=== PATIENT | female | born 1965 | race Caucasian/White ===

== ENCOUNTER 2020-08-18 13:58 | Observation (INO) | payer OTHER, SELFPAY ==
[2020-08-18] VITALS (8 sets, daily range): BP systolic 91–107; BP diastolic 52–62; PULSE 60–94; RESP 16–28; TEMP 36.4–37.2; O2SAT 91–97; BMI 30.5
--- NOTE | 2020-08-18 14:30 | DI.RAD.S_ITS ---
PROCEDURE: XR CHEST 1V INDICATIONS: flu-like symptoms TECHNIQUE: One view of the chest was acquired. COMPARISON: None. FINDINGS: Surgical changes and devices: None. Lungs and pleura: No pleural effusions or pneumothorax. Focal opacity in the left mid lung. Low lung volumes. Mediastinum: Mediastinal contours appear normal. Heart size is normal. Bones and chest wall: No suspicious bony lesions. Overlying soft tissues appear unremarkable. IMPRESSION: Focal left midlung opacity suggestive of bronchopneumonia. Recommend follow-up to document resolution after treatment and exclude underlying pulmonary nodule. Dictated by: Bradley Tinoco M.D. on 08/18/2020 at 15:40 Approved by: Bradley Tinoco M.D. on 08/18/2020 at 15:41
[2020-08-18 14:45] LABS: Lactate Dehydrogenase 634 U/L (313-618)
[2020-08-18 14:47] LABS: Add Manual Diff / Slide Review NO; Basophils Absolute Auto 0 /uL (0-100); Basophils Percent Auto 0.6 % (0-2); D Dimer < 200 ng/mL (<230); Eosinophils Absolute Auto 0 /uL (0-450); Eosinophils Percent Auto 0.3 % (2-4); Hematocrit 41.1 % (36-46); Hemoglobin 13.7 g/dL (12.0-16.0); Lactate (Lactic Acid) 0.6 mmol/L (0.7-2.1); Lymphocytes Absolute Auto 1200 /uL (1100-4500); Mean Corpuscular HGB Conc 33.4 % (30-36); Mean Corpuscular Hemoglobin 28.4 PG (26-34); Mean Corpuscular Volume 85.1 fL (80-100); Monocytes Absolute Auto 200 /uL (0-900); Monocytes Percent Auto 6.2 % (3-14); Neutrophils Absolute Auto 2400 /uL (1500-7000); Neutrophils Percent Auto 61.9 % (50-75); Platelet Count 114 X10^3/uL (150-400); Red Blood Cell Count 4.83 X10^6/uL (4.0-5.2); Red Cell Distribution Width 13.3 % (11.6-14.8); White Blood Cell Count 3.9 X10^3/uL (4.5-11.0)
[2020-08-18 14:49] LABS: Alanine Aminotransferase 25 IU/L (<35); Albumin 3.7 g/dL (3.5-5.0); Albumin Globulin Ratio 1.3 (1.0-2.8); Alkaline Phosphatase 61 U/L (38-126); Aspartate Aminotransferase 36 IU/L (14-36); BUN Creatinine Ratio 14.8 (6-22); Bilirubin Total 0.3 mg/dL (0.2-1.3); Blood Urea Nitrogen 13 mg/dL (7-17); C-Reactive Protein Quant 4.6 mg/dL (<1.0); Calcium 9.9 mg/dL (8.4-10.2); Carbon Dioxide 28 mmol/L (22-32); Chloride 105 mmol/L (98-107); Creatine Kinase 33 U/L (30-135); Estimated Glomerular Filt Rate > 60.0 mL/min (>60); Globulin 2.9 g/dL (1.7-4.1); Glucose 129 mg/dL (70-100); HEMOLYSIS 19 (0-50); Potassium 3.4 mmol/L (3.4-5.1); Sodium 137 mmol/L (137-145); Total Protein 6.6 g/dL (6.3-8.2)
--- NOTE | 2020-08-18 14:51 | ED_ITS ---
HPI - General Adult General Chief complaint: Shortness of Breath/Dyspnea Stated complaint: covid pos and she is not getting better Time Seen by Provider: 08/18/20 14:39 Source: patient Mode of arrival: Ambulatory Limitations: no limitations History of Present Illness HPI narrative: Patient stated approximately 1 week ago she started to develop symptoms of fever and coughing. She was tested at an outside facility shortly after and at the end of last week received a positive COVID results. She states that since the end of last week she has been has becoming more short of breath and dyspnea on exertion. Also having fevers and headache and generally not feeling very well. No rashes. Has been taking Tylenol at home. Related Data Home Medications Medication Instructions Recorded Confirmed No Known Home Medications 08/18/20 08/18/20 Allergies Allergy/AdvReac Type Severity Reaction Status Date / Time esther Allergy Unknown Verified 08/18/20 14:29 Review of Systems Constitutional Constitutional: Reports chills, Reports fatigue and Reports fever(s) Eyes Eyes: Denies change in vision ENT Ears, Nose, Mouth, and Throat: Denies sore throat Cardiovascular Cardiovascular: Denies chest pain, Reports dyspnea and Reports dyspnea on exertion Respiratory Respiratory: Reports cough, Reports dyspnea and Reports dyspnea on exertion Gastrointestinal Gastrointestinal: Denies abdominal pain, Reports nausea and Denies vomiting Genitourinary Genitourinary: Denies dysuria Genitourinary: Denies dysuria Musculoskeletal Musculoskeletal: Denies arthralgias and Denies myalgias Integumentary/Breasts Skin/Breast: Denies lesions and Denies rash Neurologic Neurologic: Denies behavioral changes Psychiatric Psychiatric: Denies behavioral changes Endocrine Endocrine: Reports fatigue Hematologic/Lymphatic On Anticoagulants: No Allergic/Immunologic Allergic/Immunologic: Denies urticaria Patient History Medical History Healthy adult Surgical History (Updated 08/18/20 @ 17:04 by Lily Perez MD) History of weight loss surgery Family History (Updated 08/18/20 @ 17:05 by Lily Perez MD) Mother Hypertension Diabetes mellitus Congestive heart failure Kidney disease Social History lives independently: Yes Exam Initial Vital Signs Initial Vital Signs: Vital Signs Temperature 98.9 F 08/18/20 14:04 Pulse Rate 94 H 08/18/20 14:04 Respiratory Rate 20 08/18/20 14:04 Blood Pressure 102/55 L 08/18/20 14:04 Pulse Oximetry 91 08/18/20 14:04 Const General: cooperative, comfortable and well developed Limitations: mental status not altered HENMS Head: normal to inspection and normocephalic Resp Effort & Inspection: labored and tachypneic Auscultation: rhonchi Cardio Rate: regular rate Rhythm: regular rhythm GI Inspection: non-distended Palpation: soft Skin Lesions: no lesions Rashes: no rashes Neuro General: patient alert and patient awake Cognition: normal cognition Speech: speech normal Extrem General: normal to inspection, capillary refill normal and No edema Psych Appearance: grossly normal and well kempt Course Orders Ordered: ED Orders 08/18/20 14:26 C-Reactive Protein Quant Stat Complete Blood Count AUTO DIFF Stat Comprehensive Metabolic Panel Stat D Dimer Stat Ferritin Stat Lactate (Lactic Acid) Stat Lactate Dehydrogenase Stat NT-proBNP (BNP-Adult 18+) Stat Procalcitonin Stat Troponin & CK Cardiac Panel Stat 08/18/20 14:30 XR chest 1V Stat 08/18/20 15:10 COVID19 - ADMIT (PHARMACY CARE COORDINATOR swab/PCR) Stat 08/18/20 15:58 Blood Culture Stat Acetaminophen (Acetaminophen 325 Mg Tablet) 650 mg PO Q6HR PRN PRN Reason: Fever/Mild Pain (1-3) Bisacodyl (Bisacodyl 10 Mg Supp) 10 mg OR DAILY PRN PRN Reason: Constipation Dexamethasone (Dexamethasone 10 Mg/Ml Vial) 6 mg IV DAILY [facility] Docusate Sodium (Docusate 100 Mg Capsule) 100 mg PO BID [facility] Enoxaparin Sodium (Enoxaparin 40 Mg/0.4 Ml Syringe) 40 mg SUBCUT DAILY [facility] Remdesivir 100 mg/ Sodium (Chloride) 250 mls @ 250 mls/hr IV 1500 [facility] Ibuprofen (Ibuprofen 600 Mg Tablet) 600 mg PO Q6HR PRN PRN Reason: Fever/Mild Pain (1-3) Naloxone HCl (Naloxone 0.4 Mg/Ml Vial) 0.2 mg IV Q2MIN PRN PRN Reason: Opiate Reversal Ondansetron HCl (Ondansetron 4 Mg/2 Ml Inj) 4 mg IV Q8HR PRN PRN Reason: Nausea And Vomiting Discontinued Medications Dexamethasone (Dexamethasone 10 Mg/Ml Vial) 10 mg IV NOW ONE Stop: 08/18/20 15:05 Last Admin: 08/18/20 15:12 Dose: 10 mg Documented by: JESUS Remdesivir 200 mg/ Sodium (Chloride) 250 mls @ 250 mls/hr IV NOW ONE Stop: 08/18/20 15:05 Last Infusion: 08/18/20 16:12 Dose: 0 mls/hr Documented by: Admin: 08/18/20 15:30 Dose: 250 mls/hr Documented by: JESUS Vital Signs Vital signs: Vital Signs - 8 hr 08/18/20 14:04 08/18/20 14:33 08/18/20 14:38 Temperature 98.9 F Pulse Rate 94 H 78 70 Respiratory Rate 20 28 H Blood Pressure 102/55 L 107/53 L 91/52 L Pulse Oximetry 91 94 96 08/18/20 15:00 Temperature Pulse Rate 67 Respiratory Rate Blood Pressure 97/56 L Pulse Oximetry 97 Medical Decision Making Lab Data Lab results reviewed: Yes I reviewed the patient's lab results. Result diagrams: 08/18/20 14:26 08/18/20 14:26 Labs: Lab Results 08/18/20 08/18/20 08/18/20 Range/Units 14:26 14:26 14:26 WBC 3.9 L (4.5-11.0) X10^3/uL RBC 4.83 (4.0-5.2) X10^6/uL Hgb 13.7 (12.0-16.0) g/dL Hct 41.1 (36-46) % MCV 85.1 (80-100) fL MCH 28.4 (26-34) PG MCHC 33.4 (30-36) % RDW 13.3 (11.6-14.8) % Plt Count 114 L (150-400) X10^3/uL Neut % (Auto) 61.9 (50-75) % Lymph % (Auto) 31.0 (25-40) % [place] % (Auto) 6.2 (3-14) % Eos % (Auto) 0.3 L (2-4) % Baso % (Auto) 0.6 (0-2) % Neut # (Auto) 2400 (1647-0302) /uL Lymph # (Auto) 1200 (4540-7449) /uL [place] # (Auto) 200 (0-900) /uL Eos # (Auto) 0 (0-450) /uL Baso # (Auto) 0 (0-100) /uL D-Dimer < 200 (<230) ng/mL Sodium 137 (137-145) mmol/L Potassium 3.4 (3.4-5.1) mmol/L Chloride 105 (98-107) mmol/L Carbon Dioxide 28 (22-32) mmol/L BUN 13 (7-17) mg/dL Creatinine 0.88 (0.52-1.04) mg/dL Estimated GFR > 60.0 (>60) mL/min BUN/Creatinine Ratio 14.8 (6-22) Glucose 129 H (70-100) mg/dL Lactate (0.7-2.1) mmol/L Calcium 9.9 (8.4-10.2) mg/dL Ferritin 94 (11-264) ng/mL Total Bilirubin 0.3 (0.2-1.3) mg/dL AST 36 (14-36) IU/L ALT 25 (<35) IU/L Alkaline Phosphatase 61 (38-126) U/L Lactate Dehydrogenase (313-618) U/L Total Creatine Kinase 33 (30-135) U/L CK-MB (CK-2) TNP CK-MB (CK-2) Rel Index TNP Troponin I < 0.012 (0.01-0.034) ng/mL C-Reactive Protein 4.6 H (<1.0) mg/dL NT-Pro-B Natriuret Pep (<125) pg/mL Total Protein 6.6 (6.3-8.2) g/dL Albumin 3.7 (3.5-5.0) g/dL Globulin 2.9 (1.7-4.1) g/dL Albumin/Globulin Ratio 1.3 (1.0-2.8) Procalcitonin 0.06 (<0.5) ng/mL SARS-CoV-2 (PCR) (Negative) 08/18/20 08/18/20 08/18/20 Range/Units 14:26 14:26 15:10 WBC (4.5-11.0) X10^3/uL RBC (4.0-5.2) X10^6/uL Hgb (12.0-16.0) g/dL Hct (36-46) % MCV (80-100) fL MCH (26-34) PG MCHC (30-36) % RDW (11.6-14.8) % Plt Count (150-400) X10^3/uL Neut % (Auto) (50-75) % Lymph % (Auto) (25-40) % [place] % (Auto) (3-14) % Eos % (Auto) (2-4) % Baso % (Auto) (0-2) % Neut # (Auto) (5148-4186) /uL Lymph # (Auto) (6872-8600) /uL [place] # (Auto) (0-900) /uL Eos # (Auto) (0-450) /uL Baso # (Auto) (0-100) /uL D-Dimer (<230) ng/mL Sodium (137-145) mmol/L Potassium (3.4-5.1) mmol/L Chloride (98-107) mmol/L Carbon Dioxide (22-32) mmol/L BUN (7-17) mg/dL Creatinine (0.52-1.04) mg/dL Estimated GFR (>60) mL/min BUN/Creatinine Ratio (6-22) Glucose (70-100) mg/dL Lactate 0.6 L (0.7-2.1) mmol/L Calcium (8.4-10.2) mg/dL Ferritin (11-264) ng/mL Total Bilirubin (0.2-1.3) mg/dL AST (14-36) IU/L ALT (<35) IU/L Alkaline Phosphatase (38-126) U/L Lactate Dehydrogenase 634 H (313-618) U/L Total Creatine Kinase (30-135) U/L CK-MB (CK-2) CK-MB (CK-2) Rel Index Troponin I (0.01-0.034) ng/mL C-Reactive Protein (<1.0) mg/dL NT-Pro-B Natriuret Pep 26 (<125) pg/mL Total Protein (6.3-8.2) g/dL Albumin (3.5-5.0) g/dL Globulin (1.7-4.1) g/dL Albumin/Globulin Ratio (1.0-2.8) Procalcitonin (<0.5) ng/mL SARS-CoV-2 (PCR) Positive H (Negative) Imaging Data Chest x-ray: Radiologist's Impression: [address] [id number] Scan ReportSigned Patient: Jose Alejandro Polanco RMR#: [id number]: 11/09/1960cct:[id number]/Sex: 59 / MDate of Service: 08/18/20Loc: EDAccession Number: [id number] Procedure: CT head/brain wo con Ordering Provider: Enrique Benedict D.O. PROCEDURE: CT HEAD/BRAIN WO CON INDICATIONS: suden onset of memory loss, no trauma TECHNIQUE: Noncontrast 4.5 mm thick angled axial sections acquired from the foramen magnum to the vertex, with coronal and sagittal reformats. For radiation dose reduction, the following was used: automated exposure control, adjustment of mA and/or kV according to patient size. COMPARISON: None. FINDINGS: Image quality: Excellent. CSF spaces: Basal cisterns are patent. No extra-axial fluid collections. Ventricles are normal in size and shape. Brain: No midline shift. No intracranial masses or hemorrhage. Jarrett-white matter interface is normal. Skull and face: Calvarium and visualized facial bones are intact, without suspicious lesions. Sinuses: Visualized sinuses and mastoids are clear. IMPRESSION: No acute intracranial process. Dictated by: Bradley Tinoco M.D. on 08/18/2020 at 12:59 Approved by: Bradley Tinoco M.D. on 08/18/2020 at 13:01 ECG Data Attestation: I personally reviewed and interpreted this ECG as follows: Prior ECG tracings: not available for review Interpretation: Sinus rhythm Ventricular rate is 76 Normal QRS Normal QTC Nonspecific ST T wave changes MDM Narrative Medical decision making narrative: Known COVID positive with chest x-ray and ph ysical exam consistent with this. Patient with oxygen saturations high 80s/low 90s upon arrival. She feels much better with the oxygen by nasal cannula. Patient does need admitted to the hospital given her hypoxia/respiratory status. Discussed case with Dr. perez who will admit for further evaluation and treatment. Discussed the admission with the patient. She expressed understanding and agreement. Discharge Plan Departure Patient Disposition: Admitted As Inpatient Clinical Impression: COVID-19, Hypoxia Admit Date/Time: 08/18/20 15:35 Admit Provider: Lily Perez
[2020-08-18 14:55] LABS: NT-proBNP (BNP-Adult 18+) 26 pg/mL (<125)
[2020-08-18 14:59] LABS: Troponin I < 0.012 ng/mL (0.01-0.034)
[2020-08-18 15:04] LABS: Procalcitonin 0.06 ng/mL (<0.5)
[2020-08-18] MEDS: DEXAMETHASONE 10 MG/ML VIAL IV (15:12)
[2020-08-18 15:22] LABS: Ferritin 94 ng/mL (11-264)
[2020-08-18] MEDS: REMDESIVIR 200 MG in SODIUM CHLORIDE 0.9% 210 ML 250 ML IV (15:30)
[2020-08-18 16:42] LABS: COVID19 - ADMIT (NP swab/PCR) POSITIVE (Negative)
--- NOTE | 2020-08-18 17:01 | P.HP_ITS ---
History of Present Illness History of Present Illness Date Patient Seen: 08/18/20 Chief complaint: covid pos and she is not getting better Narrative: The patient is a 55-year-old female with no past medical history who was well until about 8 days ago when she and her both contracted COVID- 19 infection. Her has been recovering quite well. The patient however has had progressive shortness of breath, continued fever to 102, headache, decreased appetite, nausea, sore throat, and cough. As her symptoms have progressed she presented to the emergency department for evaluation. In the emergency department patient was found to be hypoxic and placed on 3 L of oxygen with improvement in her oxygen saturation in 93%. Chest x-ray confirmed interstitial infiltrates consistent with SARs COVID 2 infection. The patient was given 1 dose of Decadron and initiated on remdesivir. Patient is admitted to the hospital at this time for acute hypoxic respiratory failure secondary to COVID pneumonia. Patient History Surgical History (Updated 08/18/20 @ 17:04 by Lily Perez MD) History of weight loss surgery Family & Social History Family History (Updated 08/18/20 @ 17:05 by Lily Perez MD) Mother Hypertension Diabetes mellitus Congestive heart failure Kidney disease Meds Home Medications and Allergies Home Medications Medication Instructions Recorded Confirmed Type No Known Home Medications 08/18/20 08/18/20 History Allergies Allergy/AdvReac Type Severity Reaction Status Date / Time kiwi Allergy Unknown Verified 08/18/20 14:29 Review of Systems Review of Systems ROS: Yes All systems reviewed with the patient and are negative except as otherwise documented Exam Vital Signs (past 8 hours): - 08/18/20 14:04 08/18/20 14:33 08/18/20 14:38 Temperature 98.9 F Pulse Rate 94 H 78 70 Respiratory Rate 20 28 H Blood Pressure 102/55 L 107/53 L 91/52 L Pulse Oximetry 91 94 96 08/18/20 15:00 Temperature Pulse Rate 67 Respiratory Rate Blood Pressure 97/56 L Pulse Oximetry 97 Oxygen Delivery Method Nasal Cannula Oxygen Flow Rate 3 Narrative Exam Narrative: Pleasant female lying in bed HEENT: Normocephalic atraumatic, extraocular muscles are intact, oropharynx is clear, neck is supple without adenopathy Lungs: Decreased breath sounds with diffuse rhonchi and crackles bilaterally Cardiac exam: Regular rate and rhythm normal S1-S2 Abdomen: Soft nontender nondistended without hepatosplenomegaly Extremities: No edema Neuro exam: Patient is awake alert and appropriate, answers questions appropriately, cranial nerves are intact, sensations grossly intact, strength is symmetric and equal, gait is not assessed Skin exam: No lesions observed Psychiatric exam: Patient is alert and appropriate, there is no hallucinations, no delusions Objective Labs Result Diagrams: 08/18/20 14:26 08/18/20 14:26 Labs: Laboratory Results - last 24 hr 08/18/20 08/18/20 08/18/20 14:26 14:26 14:26 WBC 3.9 L RBC 4.83 Hgb 13.7 Hct 41.1 MCV 85.1 MCH 28.4 MCHC 33.4 RDW 13.3 Plt Count 114 L Neut % (Auto) 61.9 Lymph % (Auto) 31.0 [place] % (Auto) 6.2 Eos % (Auto) 0.3 L Baso % (Auto) 0.6 Neut # (Auto) 2400 Lymph # (Auto) 1200 [place] # (Auto) 200 Eos # (Auto) 0 Baso # (Auto) 0 D-Dimer < 200 Sodium 137 Potassium 3.4 Chloride 105 Carbon Dioxide 28 BUN 13 Creatinine 0.88 Estimated GFR > 60.0 BUN/Creatinine Ratio 14.8 Glucose 129 H Lactate Calcium 9.9 Ferritin 94 Total Bilirubin 0.3 AST 36 ALT 25 Alkaline Phosphatase 61 Lactate Dehydrogenase Total Creatine Kinase 33 CK-MB (CK-2) TNP CK-MB (CK-2) Rel Index TNP Troponin I < 0.012 C-Reactive Protein 4.6 H NT-Pro-B Natriuret Pep Total Protein 6.6 Albumin 3.7 Globulin 2.9 Albumin/Globulin Ratio 1.3 Procalcitonin 0.06 SARS-CoV-2 (PCR) 08/18/20 08/18/20 08/18/20 14:26 14:26 15:10 WBC RBC Hgb Hct MCV MCH MCHC RDW Plt Count Neut % (Auto) Lymph % (Auto) [place] % (Auto) Eos % (Auto) Baso % (Auto) Neut # (Auto) Lymph # (Auto) [place] # (Auto) Eos # (Auto) Baso # (Auto) D-Dimer Sodium Potassium Chloride Carbon Dioxide BUN Creatinine Estimated GFR BUN/Creatinine Ratio Glucose Lactate 0.6 L Calcium Ferritin Total Bilirubin AST ALT Alkaline Phosphatase Lactate Dehydrogenase 634 H Total Creatine Kinase CK-MB (CK-2) CK-MB (CK-2) Rel Index Troponin I C-Reactive Protein NT-Pro-B Natriuret Pep 26 Total Protein Albumin Globulin Albumin/Globulin Ratio Procalcitonin SARS-CoV-2 (PCR) Positive H Assessment & Plan Assessment & Plan narrative: Impression 1. 55-year-old female admitted to the hospital with acute hypoxic respiratory failure secondary to COVID 19 pneumonia -patient was diagnosed with COVID a days ago -she presented to the emergency room with increasing shortness of breath, hypoxia with a room air sat of 91% and a chest x-ray consistent with interstitial infiltrate -patient is symptomatic with nausea, anorexia, cough, headache, and fever -her has COVID but has improved, other family members have been quarantine -patient received Decadron 6 mg in the emergency room and an initial dose of remdesivir -patient will continue on a 5 day treatment of Decadron and Remdesevir until she has long no longer hypoxic -patient will be placed on DVT prophylaxis -patient indicates she is full code, her is her surrogate decision maker Patient will be admitted as an inpatient as it is expected that she will be in the hospital greater than 48 hours
[2020-08-19] VITALS: BP 117/56; PULSE 77; RESP 18; TEMP 36.5; O2SAT 94
[2020-08-19 05:50] VITALS: BP 127/78; PULSE 77; RESP 18; TEMP 36.2; O2SAT 96
[2020-08-19 06:11] LABS: Basophils Absolute Auto 0 /uL (0-100); Basophils Percent Auto 0.2 % (0-2); Eosinophils Absolute Auto 0 /uL (0-450); Hematocrit 39.8 % (36-46); Hemoglobin 13.3 g/dL (12.0-16.0); Lymphocytes Absolute Auto 1200 /uL (1100-4500); Lymphocytes Percent Auto 37.8 % (25-40); Mean Corpuscular HGB Conc 33.4 % (30-36); Mean Corpuscular Hemoglobin 28.5 PG (26-34); Mean Corpuscular Volume 85.4 fL (80-100); Monocytes Absolute Auto 300 /uL (0-900); Monocytes Percent Auto 9.1 % (3-14); Neutrophils Absolute Auto 1600 /uL (1500-7000); Neutrophils Percent Auto 52.9 % (50-75); Platelet Count 108 X10^3/uL (150-400); Red Blood Cell Count 4.66 X10^6/uL (4.0-5.2); White Blood Cell Count 3.1 X10^3/uL (4.5-11.0)
[2020-08-19 06:12] LABS: Add Manual Diff / Slide Review SLIDE REVIEW
[2020-08-19 06:23] LABS: BUN Creatinine Ratio 16.2 (6-22); Blood Urea Nitrogen 12 mg/dL (7-17); Carbon Dioxide 31 mmol/L (22-32); Chloride 104 mmol/L (98-107); Estimated Glomerular Filt Rate > 60.0 mL/min (>60); Glucose 112 mg/dL (70-100); HEMOLYSIS 15 (0-50); Potassium 4.4 mmol/L (3.4-5.1); Sodium 139 mmol/L (137-145)
[2020-08-19 07:10] LABS: RBC Morphology Normal Morphology
[2020-08-19 09:34] VITALS: BP 103/65; PULSE 60; RESP 17; TEMP 37.1; O2SAT 93
[2020-08-19] MEDS: DEXAMETHASONE 10 MG/ML VIAL 6 MG IV (09:34)
--- NOTE | 2020-08-19 12:18 | CM.DANOTE ---
DCP: Case received, EMR reviewed. Called patient's room to obtain information. Introduced self and role over the phone, as patient is positive for COVID and in isolation. Was able to get information from patient regarding insurance, primary care provider, as well as her baseline status prior to hospitalization. DCP assessment completed with information currently available. Patient is a 55 year old female who admitted yesterday afternoon to the care of the hospitalist team. PCP: Dr. Barreto, [facility]. Payer: No current insurance. Patient came to the hospital via private vehicle secondary to increased shortness of breath. She was recently diagnosed with COVID 19 a few days ago, as well as her . She was admitted for hypoxia, respiratory failure, and placed on oxygen. Sent a note to admission change group, as was noted that patient has no insurance. Spoke to patient over the phone. She is independent at her baseline, and resides in [place]. She resides with her , Niko. Patient did confirm that she does go to [facility], and has seen Sabina Barreto. She indicated that she can follow up with her. Patient confirmed that she has no insurance, secondary to decreasing her hours at work, so not eligable. She is applying for insurance. She is also attempting to get on to her 's insurance plan. Admissions counselors have already reached out to her. Patient also indicated that she has a health saving account as back up for some of the health care bills, and will make payments as necessary. She is hoping to be insured withing the next month. Patient is now on room air and her sats are in the 90s. P: Patient is to be discharge home today, will follow up with her primary care provider. Tashia Webster RN/Jewelry Sorter
--- NOTE | 2020-08-19 12:47 | PC.NURSE ---
Pt A&Ox3. Some soreness reported in back and chest /. LS CTA, dry cough no wheezing or SOB. Pt trialed on RA for breakfast and 93-96% on RA. After breakfast patient tolerated sitting in chair, ambulating to bathroom and around the room independently on RA tolerating well and remained off oxygen the duration of today. MD at bedside evaluating patient and cleared patient for discharge home. Patient verbalized understanding of follow up instructions at discharge. Escorted by SENIOR QUALITY TECHNICIAN via w/ch to private vehicle outside of hospital where spouse picked patient up with all of her belongings.
--- NOTE | 2020-08-19 18:26 | P.DS_ITS ---
History of Present Illness History of Present Illness Chief complaint: covid pos and she is not getting better Narrative: The patient is a 55-year-old female with no past medical history who was well until about 8 days ago when she and her both contracted COVID- 19 infection. Her has been recovering quite well. The patient however has had progressive shortness of breath, continued fever to 102, headache, decreased appetite, nausea, sore throat, and cough. As her symptoms have progressed she presented to the emergency department for evaluation. In the emergency department patient was found to be hypoxic and placed on 3 L of oxygen with improvement in her oxygen saturation in 93%. Chest x-ray confirmed interstitial infiltrates consistent with SARs COVID 2 infection. The patient was given 1 dose of Decadron and initiated on remdesivir. Patient is admitted to the hospital at this time for acute hypoxic respiratory failure secondary to COVID pneumonia. Discharge Providers Provider Date of admission: 08/18/20 15:35 Discharge Date: 08/19/20 Discharge provider: Lily Perez MD Summary Hospital Course Discharge Diagnosis: 1. Acute hypoxic respiratory failure 2. COVID pneumonia Hospital Course: Patient was admitted to the hospital for COVID pneumonia with associated acute hypoxic respiratory failure. She was given Decadron 6 mg IV daily. She was also placed on remdesivir as well. The patient was feeling quite poorly upon admission. She was febrile, coughing, fatigued, and short of breath with minimal activity. After treatment the patient felt significantly improved. She was no longer is hypoxic. Her room air saturation was 93% at rest and remained at 93% with activity. The patient became afebrile. Her overall appetite improved. She felt significantly improved and was deemed appropriate for discharge home. Status at Discharge Cognitive/behavioral status at discharge: oriented Functional status at discharge: independent ambulation Overall status at discharge: patient is back to baseline Time Spent with Patient Time spent: Less than 30 minutes Exam Vital Signs (past 8 hours): Oxygen Delivery Method Nasal Cannula Oxygen Flow Rate 0 Narrative Exam Narrative: Pleasant female resting comfortably in no obvious distress Lungs: Decreased breath sounds but clear Cardiac exam: Regular rate and rhythm normal S1-S2 Abdomen: Soft nontender nondistended Extremities: No edema Objective Labs Result Diagrams: 08/19/20 05:45 08/19/20 05:45 Labs: Laboratory Results - last 24 hr 08/19/20 08/19/20 05:45 05:45 WBC 3.1 L RBC 4.66 Hgb 13.3 Hct 39.8 MCV 85.4 MCH 28.5 MCHC 33.4 RDW 13.0 Plt Count 108 L Neut % (Auto) 52.9 Lymph % (Auto) 37.8 [place] % (Auto) 9.1 Eos % (Auto) 0.0 L Baso % (Auto) 0.2 Neut # (Auto) 1600 Lymph # (Auto) 1200 [place] # (Auto) 300 Eos # (Auto) 0 Baso # (Auto) 0 Plt Morphology Comment RBC Morphology Normal morphology Sodium 139 Potassium 4.4 Chloride 104 Carbon Dioxide 31 BUN 12 Creatinine 0.74 Estimated GFR > 60.0 BUN/Creatinine Ratio 16.2 Glucose 112 H Calcium 10.0 PFSH Medical History Healthy adult Surgical History (Updated 08/18/20 @ 17:04 by Lily Perez MD) History of weight loss surgery Family History (Updated 08/18/20 @ 17:05 by Lily Perez MD) Mother Hypertension Diabetes mellitus Congestive heart failure Kidney disease Social History household members: spouse lives independently: Yes Smoking Status: Never smoker Discharge Assessment & Plan Assessment and Plan Assessment: 1. Acute hypoxic respiratory failure, resolved 2. COVID-19 pneumonia Plan of Treatment: Discharge home Follow-up with PCP next week Discharge Plan Discharge Plan Patient Disposition: Home Discharge orders & Medications Prescriptions: No Action No Known Home Medications RF: 0 Discharge Health Status Multidrug resistant organism: No MDRO Diet/Activity/Treatments Diet: Diet as Tolerated Skin/Wound/Dressing Care Report to your healthcare provider any signs of infection, such as:: chills, f ever Visit Report/Discharge Packet Instructions: DI for Respiratory Failure, DI for COVID-19 (Suspected or Confirmed ) Discharge Data Attending Provider: Lily Perez
== END 2020-08-19 13:35 | disposition home or self-care (01) ==
LOC: ED 15:00 → AC 08-19 08:24
PROVIDERS: Admitting Provider Internal Medicine; Emergency Provider Emergency Medicine; Referring Provider Emergency Medicine; Visit Provider Internal Medicine
DX: U07.1 COVID-19 (principal); J12.82 Pneumonia due to coronavirus disease 2019; J96.01 Acute respiratory failure with hypoxia
CPT/HCPCS: 36415; 71045; 80048; 80053; 82550; 82728; 82962; 83605; 83615; 83880; 84145; 84484; 85025; 85379; 86140; 87040; 87635; 93005; 94762; 96365; 96375; 96376; 99285; C9803; G0378; J1100; J1650; J2405